=== PATIENT | male | born 1995 | race Caucasian/White ===

== ENCOUNTER → 2016-09-06 | Outpatient (CLI) | payer BC ==
[~2016-09-06] MED LIST: OPTIRAY 320 IV PRN
--- NOTE | 2016-09-06 08:55 | DIAGNOSTIC IMAGING REPORT ---
CHEST CT WITH CONTRAST CT DOSE: 560.47 mGy.cm HISTORY: Painful port site within the left upper chest. TECHNIQUE: Multiaxial CT images of the chest were performed following the intravenous administration of contrast. COMPARISON: Chest CT 06/30/2016. FINDINGS: Mild asymmetric skin thickening seen within the left upper chest wall which may represent scarring. No subcutaneous fluid collections to suggest an abscess. Anterior mediastinal soft tissue masslike abnormality remains unchanged. This measures approximately 4.6 x 2.0 cm. Mildly enlarged mediastinal lymph nodes are not significantly changed. Dominant precarinal lymph node measures approximately 1.5 x 1.0 cm. No axillary lymphadenopathy. A right retroclavicular lymph node on image 35 of 341 measures 14 x 10 mm. This is also not significantly changed. The visualized liver, spleen, and adrenal glands are unremarkable. Normal caliber thoracic aorta. The central pulmonary arteries are patent. No pleural or pericardial effusions. No suspicious lytic or blastic osseous lesions. No pneumothorax. The central airways are patent. The lungs are clear. IMPRESSION: 1. Mild asymmetric skin thickening within the left upper chest wall which favors scarring. No loculated fluid collections to suggest an abscess. 2. No significant change in the anterior mediastinal soft tissue mass and prominent mediastinal lymph nodes. 3. A single prominent right retroclavicular lymph node is also unchanged. Electronically signed by: Jerald Albarran M.D. 09/06/2016 8:54 AM Dictated Date/Time: 09/06/2016 8:44 AM
== END | disposition home or self-care (01) ==
LOC: C.CTS 08:09
PROVIDERS: ATTEND Nurse Practitioner Family
DX: C81.90 Hodgkin lymphoma, unspecified, unspecified site (principal)

== ENCOUNTER → 2017-01-24 | Outpatient (CLI) | payer BC ==
--- NOTE | 2017-01-24 09:24 | DIAGNOSTIC IMAGING REPORT ---
ABD/PELVIS IV AND ORAL CONT CLINICAL HISTORY: 21 years-old Male presenting with LYMPHOMA. TECHNIQUE: Multidetector CT imaging of the abdomen and pelvis was performed after the administration of 91 mL of Optiray 320 intravenous contrast. Oral contrast was also administered. COMPARISON: 06/30/2016. 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 Lung bases: Lung bases clear. No pericardial or pleural effusion. Liver: Normal morphology. No liver lesion. Patent hepatic vasculature. Biliary: No intrahepatic or extrahepatic ductal dilatation. Gallbladder normal. Pancreas: Normal. Spleen: Normal. Adrenal glands: Normal. Kidneys: Normal. No hydronephrosis. Bowel: Mild stool burden throughout normal caliber colon. Oral contrast has transited to the hepatic flexure. Normal appendix. No bowel obstruction. Peritoneum: No free fluid. Vasculature: Aorta and IVC patent and normal in caliber. Lymph nodes: No lymphadenopathy in the abdomen or pelvis. Bladder: Normal. Pelvic organs: Normal prostate and seminal vesicles. Abdominal wall: Normal. Musculoskeletal: Normal. IMPRESSION: 1. No lymphadenopathy in the abdomen or pelvis. No acute intra-abdominal pathology. Electronically signed by: Chao Johnson 01/24/2017 9:23 AM Dictated Date/Time: 01/24/2017 9:17 AM
--- NOTE | 2017-01-24 09:33 | DIAGNOSTIC IMAGING REPORT ---
CHEST CT WITH CONTRAST CT DOSE: HISTORY: Lymphoma LYMPHOMA TECHNIQUE: Multiaxial CT images of the chest were performed following the intravenous administration of contrast. COMPARISON: 09/06/2016 FINDINGS: Stable to moderately improved supraclavicular kirsty change. Significant kirsty change is not identified currently. Has the high axillary regions show several small shotty nodes. These are unchanged. Anterior mediastinal soft tissue fullness resembling residual alignment is is stable. No significant hilar or mediastinal kirsty pathology. Skin thickening of the anterior chest wall procedure described has resolved. Interval development of groundglass densities superior segment right lower lobe measuring 2.4 and 2.0 cm respectively. These should be closely followed. Lungs otherwise appear clear. Limited evaluation the upper abdomen is unremarkable. IMPRESSION: 1. Mildly improved adenopathy with no significant residual. 2. Interval development of groundglass nodular densities right upper lung in the right upper lobe and superior segment right lower lobe measuring 2.0 and 2.5 cm respectively. 3. A short-term CT follow-up is recommended. Electronically signed by: Lenny Rivero M.D. 01/24/2017 9:32 AM Dictated Date/Time: 01/24/2017 9:13 AM
== END ==
LOC: C.CTS 08:36
PROVIDERS: ATTEND Nurse Practitioner Family
DX: C81.90 Hodgkin lymphoma, unspecified, unspecified site (principal)

== ENCOUNTER → 2017-04-06 | Outpatient (CLI) | payer BC ==
--- NOTE | 2017-04-06 09:27 | DIAGNOSTIC IMAGING REPORT ---
CT OF THE CHEST WITH IV CONTRAST CLINICAL HISTORY: Hodgkin's lymphoma. COMPARISON STUDY: Chest CT January 24, 2017 and PET/CT December 29, 2015. TECHNIQUE: Following IV administration of 94 mL of Optiray-320, helical axial images of the chest were obtained. Sagittal and coronal reconstructions were viewed as well as maximal intensity projections on an independent 3-D workstation. A dose lowering technique was utilized adhering to the principles of ALARA. CT DOSE: 608.86 mGy.cm FINDINGS: A prominent right retroclavicular lymph node shown on axial image 30 of 316 is unchanged since exams of January 24, 2017 and September 06, 2016. A prominent right paratracheal lymph node shown on image 71, measuring 1 cm in short axis diameter is unchanged. Anterior mediastinal soft tissue which measures 3.7 x 2.7 cm is unchanged. The size of the heart is normal. There is no pericardial effusion. Central airways are patent. Lungs are clear. Right upper lobe airspace opacity shown on exam of January 24, 2017 has resolved. Bony thorax and upper abdomen are unremarkable. IMPRESSION: 1. No change in anterior mediastinal soft tissue. The appearance favors thymus although stable residual mediastinal mass could appear similar. 2. No change in prominent right retroclavicular and upper mediastinal lymph nodes since prior exam. No evidence for progressive lymphadenopathy. 3. Interval resolution of right upper lobe airspace opacity shown on prior exam. This reflected an infectious etiology. Electronically signed by: Karthik Tavares M.D. 04/06/2017 9:26 AM Dictated Date/Time: 04/06/2017 9:15 AM
== END | disposition home or self-care (01) ==
LOC: C.CTS 08:50
PROVIDERS: ATTEND Nurse Practitioner Family
DX: C81.90 Hodgkin lymphoma, unspecified, unspecified site (principal)